=== PATIENT | female | born 1975 | race Caucasian/White ===

== ENCOUNTER 2017-04-22 13:38 | Emergency (ER) | payer MEDICAID ==
[2017-04-22 15:33] VITALS: BP 118/75
== END 2017-04-22 15:33 | disposition home or self-care (01) ==
LOC: ED 13:38
DX: K11.21 Acute sialoadenitis (principal); Z79.891 Long term (current) use of opiate analgesic; Z79.01 Long term (current) use of anticoagulants; Z86.711 Personal history of pulmonary embolism